=== PATIENT | male | born 1985 | race African-American/Black ===

== ENCOUNTER 2020-03-07 00:50 | Inpatient (IN) | payer SELFPAY ==
[~2020-03-07] VITALS: Ht 180.3 cm; Wt 81.8 kg
[2020-03-07] VITALS (7 sets, daily range): BP systolic 114–150; BP diastolic 71–94
[2020-03-07] MEDS: HYDROcodone/APAP 10/325 1 TAB TABLET PO PRN ×4 (01:38→20:27)
[2020-03-07] MEDS ORDERED: HYDROcodone/APAP 5/325MG 1 TAB TABLET PO PRN (12:00)
--- NOTE | 2020-03-07 12:01 | HP ---
ADMIT DATE: 03/07/2020 HISTORY OF PRESENT ILLNESS: The patient is a 34-year-old -[place] right-handed male with no reported past medical history who presented with chief complaint of pain and swelling in his right third finger. He stated he noticed pain approximately 6 hours prior to arrival. He states that he noticed progressive swelling and redness of his finger. He states that it is painful to move and is getting more swollen. He does not note an opening draining wounds on the dorsum of the proximal interphalangeal joint. Denied any trauma or injury. Denies any IV drug use. Denied any recent antibiotic. Denied any chills, rigors or fever. He thinks that the redness has been tracking to his hand and wrist. Has never had something like this before. 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 He was not wearing any gloves; however, he denied any known injury or trauma. He was evaluated in the Emergency Room. His lab work was unremarkable. He has had a CT scan of his upper extremity, which showed that the patient has fourth digit subcutaneous edema and mild dorsal hand subcutaneous edema. No abscess. There is a small cutaneous lesion overlying the 4th proximal phalanx, [id number] distal phalanx base fracture, patent vasculature, myotendinous structures are grossly intact. Given the pain and swelling, the patient was treated with IV cefazolin and oral Bactrim and was transferred to [facility] to consult the orthopedic surgeon as well as the Infectious Disease specialist. PAST MEDICAL HISTORY: Unremarkable. PAST SURGICAL HISTORY: Also unremarkable. FAMILY HISTORY: Noncontributory to present illness. 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 He smokes more than a pack a day. Does not drink alcohol or use recreational drugs. REVIEW OF SYSTEMS: As per history of present illness. PHYSICAL EXAMINATION: GENERAL: On examining him, he looked well and was clearly in no apparent respiratory distress. No pallor, jaundice, cyanosis or thyromegaly. No jugular venous distention. No limb edema. VITAL SIGNS: His heart rate was 85, blood pressure was 132/65, temperature was 97.9, respiratory rate was 16, and oxygen saturation was 98% on room air. HEAD, EYES, EARS, NOSE AND THROAT: Normocephalic, atraumatic. NECK: Supple. HEART: Showed normal first and second heart sounds. No gallop, rub or murmur. CHEST: Clear to auscultation. No crepitation or rhonchi. ABDOMEN: Distended, soft, nontender. NEUROLOGIC: He is awake, alert, responding appropriately. All cranial nerves intact. EXTREMITIES: He moves extremities without difficulty. Examination of the right hand showed that his right third digit with fusiform swelling noted 2 mm opening draining wound noted on the dorsal aspect of the proximal interphalangeal joint, overlying erythema appreciated pain with passive extension. The erythema appears to be streaking to the dorsum of the hand overlying the right wrist slightly. LABORATORY DATA: Showed a white cell count of 8100, hemoglobin 13.3, hematocrit 38, MCV 79, and platelet count 227,000 with normal manual differential. Serum sodium 140, potassium 3.8, chloride 105, bicarbonate 26, anion gap of 9, BUN 17, creatinine 1.5, estimated GFR was 64 mL per minute, his glucose was 96 and calcium was 9.3. ASSESSMENT AND PLAN: This is a 34-year-old -[place] male patient who came in with complaint of pain, swelling and redness of the right third middle finger extending over his right hand. He denied any trauma or known injury. He has also [id number] distal phalanx base fracture and therefore the patient was transferred to [facility] to consult the orthopedic surgeon as well as the Infectious Disease. We will continue with IV cefazolin as well as Bactrim and decide on further management accordingly. SHEELA MONTESINOS MD DR: DAXA/dave JOB#: [id number] / [id number]
[2020-03-07] MEDS: ceFAZolin SODIUM IV Push 1 GM VIAL. IVP SCH ×2 (12:55→22:55)
[2020-03-07] MEDS: SMZ/TMP 800/160MG TABLET. PO SCH ×2 (12:55→20:27)
[2020-03-07] MEDS ORDERED: CEFAZOLIN SODIUM IV SCH (13:00)
[2020-03-07] MEDS ORDERED: DEXTROSE 5% IV SCH (13:00)
--- NOTE | 2020-03-07 13:36 | PDOC2 ---
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 He stated he noticed pain approximately 6 hours prior to arrival to the ER yeste rday, got somewhat better on IV antibiotics, and now hasn't had a dose of antibiotics for awhile and swelling is worse. He states that he noticed progressive swelling and redness of his finger. He states that it is painful to move and is getting more swollen. Difficult to tell if there is more pain dorsally or on the flexor side, but seems mostly on the dorsal aspect of the ring finger. He does not note an opening draining wounds on the dorsum of the proximal interphalangeal joint. Denied any trauma or injury. Denies any IV drug use. Denied any recent antibiotic. Denied any chills, rigors or fever. He thinks that the redness has been tracking to his hand and wrist. Has never had something like this before. 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 He was not wearing any gloves; however, he denied any known injury or trauma. He was evaluated in the Emergency Room. His lab work was unremarkable. He has had a CT scan of his upper extremity, which showed that the patient has fourth digit subcutaneous edema and mild dorsal hand subcutaneous edema. No abscess. There is a small cutaneous lesion overlying the 4th proximal phalanx, [id number] distal phalanx base fracture, patent vasculature, myotendinous structures are grossly intact. Given the pain and swelling, the patient was treated with IV cefazolin and oral Bactrim and was transferred to [facility], and I was consulted. Current Medications Current Medications Current Medications Acetaminophen/ Hydrocodone Bitart (Lortab 10/325) 1 tab PRN Q6HRS PRN PO SEVERE PAIN 7-10 Last administered on 03/07/20at 07:45; Start 03/07/20 at 01:30 Cefazolin Sodium 500 mg/Dextrose 50 ml @ 100 mls/hr Q8HRS IV ; Start 03/07/20 at 13:00; Status Cancel Trimethoprim/ Sulfamethoxazole (Bactrim Ds) 1 tab BID PO Last administered on 03/07/20at 12:55; Start 03/07/20 at 12:00 Acetaminophen/ Hydrocodone Bitart (Lortab 5/325) 1 tab PRN Q4HRS PRN PO MODERATE TO SEVERE PAIN; Start 03/07/20 at 12:00 Cefazolin Sodium (Ancef) 1 gm Q8HRS IVP Last administered on 03/07/20at 12:55; Start 03/07/20 at 13:00 Allergies Allergies: Coded Allergies: No Known Drug Allergies (Unverified , 07/31/15) Physical Exam General: Alert, Cooperative HEENT: Atraumatic Lungs: Normal air movement Heart: Regular rate Abdomen: Soft Extremities: Other (The entire hand is trace swollen, however most of the swelling pain and difficulty with motion are of the right ring finger. He is keeping the finger slightly flexed, and has increased dorsal pain with passive extension (not increased pain on the flexor tendon). He does not otherwise have the Kanavel signs--there is minimal if any tenderness on the flexor aspect, there is no flexor side pain with passive extension, there is no "sausage digit" fusiform swelling. The swelling and tenderness are localized dorsally along the proximal and middle phalanx. There is a tiny abrasion or healed laceration pinpoint <1mm size on the skin of the middle phalanx but no drainage. Doubtful erythema. No PIP joint effusion on exam using medial to lateral joint compr ession. Difficult to localize any specific area to drain. ) MUSCULOSKELETAL: Abnormal exam of right (ring finger as above) Vitals VITALS Vital Signs Date Time Temp Pulse Resp B/P (MAP) Pulse Ox O2 Delivery O2 Flow Rate FiO2 03/07/20 11:00 98.2 71 18 131/79 (96) 99 98.2 03/07/20 10:00 Room Air Images Images Report reviewed and images independently reviewed of CT scan right upper extremity. Slight dorsal finger ring finger swelling series 6 image 74, with no apparent abscess nor any joint effusion. Dorsal swelling also on series 4 image 56 and also on image 35 (these are over the MCP joint and PIP joint respectively). I don't have access to x-rays or XR report, although I believe he had plain radiographs previously. [address] [address] IMAGING REPORT Signed PATIENT: MERCEDES MOJICA ACCOUNT: [id number] : 1985 LOCATION: ER AGE: 34 SEX: M EXAM STATUS: REG ER ORD. PHYSICIAN: LAKISHA NEWBERRY DO REASON: Rt 4rd digit redness, swelilng extending to dorsum of hand PROCEDURE: CT UPPER EXTREMTY W/CONTRST RT CT UPPER EXTREMTY W/CONTRST RT History: Reason: Rt 4rd digit redness, swelilng extending to dorsum of hand / Spl. Instructions: / History: Comparison: None. Technique: CT right upper extremity with contrast. Coronal and sagittal reconstructions were performed. Exposure: One or more of the following individualized dose reduction techniques were utilized for this examination: 1. Automated exposure control 2. Adjustment of the mA and/or kV according to patient size 3. Use of iterative reconstruction technique. Findings: Fourth digit subcutaneous edema. Mild dorsal hand subcutaneous edema. No abscess. There is a small cutaneous lesion overlying the fourth proximal phalanx. Acute to subacute third distal phalanx base fracture. Patent vasculature. Myotendinous structures are grossly intact. Impression: 1. Fourth digit dorsal soft tissue swelling extending into the dorsal aspect of the. No evidence of abscess. If persistent clinical concern, MRI can better evaluate. 2. Small cutaneous lesion overlying the dorsal fourth proximal phalanx. Recommend clinical correlation. 3. Acute to subacute third distal phalanx base fracture. Electronically signed by: Too Dumont DO (03/06/2020 10:14 PM) [facility] DICTATED AND SIGNED BY: TOO DUMONT DO DATE: 03/06/20 [id number] CC: PCP,RUEL; LAKISHA NEWBERRY DO Assessment/Plan Assessment/Plan There is right finger swelling but without apparent drainable abscess or any definitive septic joint. There is no reported or definitive injury. I do not believe this is flexor tenosynovitis, although to he does have a few symptoms of it, such as holding the finger flexed and increased pain with passive extension, but on my examination almost all of the concerning findings are on the dorsal aspect. I recommend intravenous antibiotics at this time, and if there is infection it might coalesce, and be more obvious where an incision could be placed if there is any surgical drainage needed. At this time I am not recommending surgery and I will reexamine him after antibiotics have been continued. There is inflammation along the extensor tendon of the right ring finger. GENE MARTIN MD Mar 07, 2020 13:36
--- NOTE | 2020-03-07 15:16 | NUR ---
SW following. Spoke with RN and reviewed chart. Pt from home. Pt on room air, regular diet, PO medications. Consult to Dr. Rodriguez per cellulitis. Pt will likely discharge home today, self-care. No SW needs identified for discharge planning. Addendum: 03/07/20 at 1521 by IVÁN GARCIAS pt is self-pay and [facility] is following.
[2020-03-07] MEDS: LACTOBACILLUS RHAMNOSUS GG 1 CAPSULE. PO SCH (20:27)
[2020-03-08 03:20] VITALS: BP 132/77
[2020-03-08] MEDS: HYDROcodone/APAP 10/325 1 TAB TABLET PO PRN ×2 (03:23→09:29)
[2020-03-08] MEDS: ceFAZolin SODIUM IV Push 1 GM VIAL. IVP SCH (06:09)
[2020-03-08 06:19] LABS: HEMATOCRIT 40.7 % (39.0-53.0); HEMOGLOBIN 14.1 g/dL (13.0-17.5); RED BLOOD COUNT 5.25 x10^6/uL (4.30-5.70); RED CELL DISTRIBUTION WIDTH 14.4 % (11.5-14.5); WHITE BLOOD COUNT 9.1 x10^3/uL (4.0-11.0)
[2020-03-08 06:40] LABS: C-REACTIVE PROTEIN 23.2 mg/L (0-3.3); URIC ACID 4.9 mg/dL (3.5-7.2)
[2020-03-08 06:42] LABS: ALBUMIN 3.8 g/dL (3.4-5.0); ALBUMIN/GLOBULIN RATIO 1.3 (1.0-1.7); CALCIUM 9.1 mg/dL (8.5-10.1); CREATININE 1.3 mg/dL (0.7-1.3); GFR 76.5; POTASSIUM 4.3 mmol/L (3.5-5.1); TOTAL BILIRUBIN 0.2 mg/dL (0.2-1.0); TOTAL PROTEIN 6.7 g/dL (6.4-8.2)
[2020-03-08 07:00] VITALS: BP 137/88
[2020-03-08] MEDS: LACTOBACILLUS RHAMNOSUS GG 1 CAPSULE. PO SCH (09:29)
[2020-03-08] MEDS: SMZ/TMP 800/160MG TABLET. PO SCH (09:29)
[2020-03-08 11:00] VITALS: BP 136/76
[2020-03-08] MEDS ORDERED: DOXYCYCLINE HYCLATE 100 MG TABLET PO SCH (11:00)
[2020-03-08] MEDS ORDERED: cefTRIAXone IV Push 2 GM VIAL. IVP ONE (11:15)
--- NOTE | 2020-03-08 11:43 | CONS ---
DATE OF CONSULTATION: 03/08/2020 REQUESTING PHYSICIAN: Dr. Orellana. REASON FOR CONSULTATION: Right hand swelling and pain. HISTORY OF PRESENT ILLNESS: This is a 34-year-old gentleman who started having about 3 or 4 days ago sudden onset of swelling and pain into the right hand. The patient denies any trauma. Denies any break in the skin. The patient apparently was working and then started having pain and swelling. The patient denies any fever. Denies any chest pain, shortness of breath, abdominal pain, urinary symptoms or bowel symptoms. On further questioning for about any syphilis or gonorrhea, he said he did have syphilis 2 years ago, but he never got any shots. He got a couple of pills, so it sounds like he may have had gonorrhea rather than syphilis. Syphilis would be treated with shots. The patient denies any penile discharge right now. PAST MEDICAL HISTORY: Positive for metal clarisa in the right foot, otherwise unremarkable. Other than what I mentioned as he said that he remembers having syphilis 2 years ago. Again, treatment did not go with his diagnosis or his memory. SOCIAL HISTORY: The patient is sexually active with females, never had males. The patient does smoke. Occasional alcohol use. No drug use. ALLERGIES: No known drug allergies. CURRENT MEDICATIONS: Reviewed. REVIEW OF SYSTEMS: As per HPI, all other systems reviewed are negative. PHYSICAL EXAMINATION: GENERAL: Alert, oriented gentleman, not in distress. VITAL SIGNS: Stable, afebrile. HEENT: NAD. NECK: Supple, no JVP, no lymphadenopathy. LUNGS: Clear. HEART: S1, S2 regular. ABDOMEN: Soft, nontender, no organomegaly. EXTREMITIES: No edema, cyanosis. SKIN: Unremarkable except the right hand is swollen. The swelling is all the hand including the fingers and/or some more pronounced into the right ring finger. There is passive extension movement. It is in a flexed position is the finger and any extension causes pain, indicating does have tenosynovitis. The patient is also tender on the palm, the tendons. There is no pus pointing. There is no area of concern with abscess. There is no break in the skin other than a little pimple on the finger. Rest of skin examination is unremarkable. The patient is neurologically intact. LABORATORY DATA: White count is normal. BUN and creatinine is normal. CRP is 23.2. The patient did have a x-ray at [facility], which was unremarkable. IMPRESSION: Right hand swelling and pain. This is a combination of regular simple cellulitis versus tenosynovitis. With his history of syphilis or gonorrhea 2 years ago, it is worth consideration. RECOMMENDATIONS: We would change antibiotics to Rocephin. Get RPR or syphilis test done as well as urine for GC and chlamydia and with Rocephin 2 grams that would be more than adequate to treat gonorrhea and we will put him on doxycycline for him to go home on that would also work for his possible cellulitis. Thank you very much, Dr. Orellana, for giving me the opportunity to participate in this patient's care. DANAE WARD MD DR: THOMPSON/dave JOB#: [id number] / [id number]
[2020-03-08 15:00] VITALS: BP 137/87
[2020-03-08] MEDS ORDERED: DOXY100C2 PO (15:23)
--- NOTE | 2020-03-08 16:43 | NUR ---
SW following. Spoke with RN and reviewed chart. Spoke with Dr. Rowe and pt will discharge on oral abx. No SW needs identified for discharge planning.
--- NOTE | 2020-03-08 17:30 | NUR ---
Discharge Note: Patient was discharge home with self care. Patients IV was discontinued without any complications per [employer]. Patient was given discharge summary/instructions, follow-ups, prescriptions and educational material. Patient did not have any further questions or concerns. Patient ambulated to the main entrance with all personal belongings accompanied by [facility] Shawna, where his ride was here to take him home.
--- NOTE | 2020-03-09 10:01 | DS ---
DATE OF DISCHARGE: 03/08/2020 HOSPITAL COURSE: The patient is a 34-year-old -[place] male patient who was admitted with cellulitis of the right hand. He presented to the Emergency Room of [facility] with pain, swelling and redness of the right third middle finger extending over to his right hand. He denied any trauma or known injury. He also had acute or subacute distal phalanx base fracture and therefore, he was transferred to [facility] to consult the orthopedic surgeon as well as Infectious Disease. He was treated with cefazolin as well as Bactrim. He was seen by the orthopedic surgeon, Dr. Rodriguez who basically did not think that the patient has any septic joint and he does not believe that he has flexor tenosynovitis. He was seen by Dr. Rowe. He was basically given 2 grams of Rocephin and urine was sent for gonorrhea and chlamydia and also RPR for syphilis and was discharged home to go on doxycycline 100 mg twice a day for 10 days. PHYSICAL EXAMINATION: GENERAL: When I saw him yesterday before discharge, he looked well and was clearly in no apparent respiratory distress. No pallor, jaundice, cyanosis or thyromegaly. No jugular venous distention or limb edema. VITAL SIGNS: His heart rate was 68, blood pressure was 137/87, temperature 98.8, respiratory rate was 20, and oxygen saturation was 100%. HEAD, EYES, EARS, NOSE AND THROAT: Showed normocephalic, atraumatic. NECK: Supple. HEART: Showed normal first and second heart sounds. No gallop or murmur. CHEST: Clear to auscultation. No crepitation or rhonchi. ABDOMEN: Distended, soft, nontender. NEUROLOGIC: He was grossly intact. His right hand continued to be swollen and tender to touch. LABORATORY DATA: His Treponema pallidum is nonreactive. His white cell count was 9100, hemoglobin 14, hematocrit 40, MCV 78 and platelet count 239,000. Serum sodium was 137, potassium 4.3, chloride 101, bicarbonate 28, anion gap of 8, BUN 14, creatinine 1.3, estimated GFR was 76 mL per minute, his glucose is 116. Uric acid 4.9. His calcium was 9.1. Total bilirubin, AST, ALT, alkaline phosphatase were normal. C-reactive protein was 23.2. Total protein was 6.7, albumin 3.8. DISCHARGE MEDICATIONS: The patient was discharged home to continue on doxycycline 100 mg twice a day for 10 days. He was given also prescription for pain medication. His gonorrhea and chlamydia test is still pending at the time of this dictation. SHEELA MONTESINOS MD DR: DAXA/dave JOB#: [id number] / [id number]
== END 2020-03-08 17:58 | disposition home or self-care (01) | DRG 603 ==
LOC: 5 NORTH 00:50
PROVIDERS: ADMIT Internal Medicine; ATTEND Internal Medicine
DX: L03.113 Cellulitis of right upper limb (principal); F17.210 Nicotine dependence, cigarettes, uncomplicated
CPT/HCPCS: 36415; 80053; 84550; 85027; 86140; 86592; 87491; 87591; J0690; J0696; G0378

== ENCOUNTER 2020-11-30 00:27 | Inpatient (IN) | payer SELFPAY ==
[~2020-11-30] VITALS: Ht 188 cm; Wt 95.5 kg
[~2020-11-30 00:27] MED LIST: DOXY100C2 PO
[2020-11-30] MEDS ORDERED: HALOPERIDOL LACTATE 5 MG/ML VIAL. IVP ONE (01:15)
[2020-11-30] MEDS ORDERED: IV NORMAL SALINE 1000ML BAG 1,000 ML IV ONE ×2 (01:15→07:00)
[2020-11-30] MEDS ORDERED: KETAMINE HCL 500 MG/10 ML VIAL. IV ONE (01:15)
[2020-11-30 01:16] LABS: BASO % 1 % (0-3); EOS % 1 % (0-3); HEMATOCRIT 39.3 % (39.0-53.0); HEMOGLOBIN 13.7 g/dL (13.0-17.5); LYMPH # 2.3 x10^3/uL (1.0-4.8); LYMPH % 43 % (24-48); MEAN CORPUSCULAR HEMOGLOBIN 27 pg (25-35); MEAN CORPUSCULAR HGB CONC 35 g/dL (31-37); MEAN CORPUSCULAR VOLUME 78 fL (79-100); MONO # 0.5 x10^3/uL (0.0-1.1); MONO % 9 % (0-9); NEUT # 2.5 x10^3/uL (1.8-7.7); NEUT % 47 % (31-73); PLATELET COUNT 228 x10^3/uL (140-400); RED BLOOD COUNT 5.06 x10^6/uL (4.30-5.70); RED CELL DISTRIBUTION WIDTH 14.2 % (11.5-14.5); WHITE BLOOD COUNT 5.3 x10^3/uL (4.0-11.0)
--- NOTE | 2020-11-30 01:25 | PHYS DOC ---
Past Medical History Past Medical History: No Pertinent History (MARYAM HERMAN DO) Past Surgical History: No Surgical History (MARYAM HERMAN DO) Smoking Status: Current Every Day Smoker Alcohol Use: None Drug Use: None (MARYAM HERMAN DO) General Adult HPI: HPI: 35-year-old male who denies any past medical history presents to the ED bibems/in police custody, confused, minimally responsive to pain. Per police at bedside they were called to the scene because patient was making homicidal threats to shoot people with a gun. Patient was found in an apartment complex parking lot with multiple cans of beer in his vehicle. Patient later reported an EEG that he "doesn't see doctors," and "I did alot of durgs." Pt c/o front tooth being knocked out. Police also reports that patient resisted arrest and patient's head was slammed on the top of his vehicle (MARYAM HERMAN DO) Review of Systems: Review of Systems: ROS: Unobtainable due to patient's agitation/suspect polysubstance abuse, patient with no medical decision-making capacity (MARYAM HERMAN DO) Heart Score: C/O Chest Pain: N/A Risk Factors: Risk Factors: DM, Current or recent (<one month) smoker, HTN, HLP, family history of CAD, obesity. Risk Scores: Score 0 - 3: 2.5% MACE over next 6 weeks - Discharge Home Score 4 - 6: 20.3% MACE over next 6 weeks - Admit for Clinical Observation Score 7 - 10: 72.7% MACE over next 6 weeks - Early Invasive Strategies (MARYAM HERMAN DO) C/O Chest Pain: No (NORMA TINEO MD) Current Medications: Current Medications Medications (Trade) Dose Ordered Sig/Destini Start Time Stop Time Status Last Admin Dose Admin Haloperidol Lactate (Haldol Inj) 5 mg 1X ONCE 11/30/20 01:15 11/30/20 01:16 Ketamine HCl (Ketamine) 150 mg 1X ONCE 11/30/20 01:15 11/30/20 01:16 Sodium Chloride 1,000 ml @ 1,000 mls/hr 1X ONCE 11/30/20 01:15 11/30/20 02:14 (MARYAM HERMAN DO) Allergies: Allergies: Allergies Coded Allergies Type Severity Reaction Last Updated Verified No Known Drug Allergies 07/31/15 No (MARYAM HERMAN DO) Physical Exam: PE: Constitutional: Handcuffed with sand all over patient's head and neck and chest, states name HENT: Normocephalic, atraumatic, no periorbital ecchymosis, no septal hematoma, Eyes: PERRLA, EOMI, conjunctiva normal, no discharge. Neck: Normal range of motion, supple, no midline step-offs Cardiovascular: S1/2 present, regular rhythm Lungs & Thorax: Speaking in full sentences, bilateral equal chest rise, no tachypnea or increased work of breathing, bilateral breath sounds on arrival Abdomen: soft, no tenderness, Skin: Warm, dry, Back: No midline step-offs or reproducible tenderness, Extremities: No tenderness, no cyanosis, slight abrasion-unsure if new/old over medial left knee Neurologic: E1M1V5 = GCS7, alert to name, Psychologic: very agitated, uncooperative, disorganized behavior/inappropriate responses c/w substance abuse (MARYAM HERMAN DO) EKG: EKG: Since the mid 94 bpm, no axis deviation, QTC 448, no T wave inversions, no ST elevations or ST depressions (MARYAM HERMAN DO) Radiology/Procedures: Radiology/Procedures: IMAGING REPORT Signed PATIENT: MERCEDES MCKEONACCOUNT: [id number] : 1985 LOCATION: ER AGE: 35 SEX: M EXAM STATUS: REG ER ORD. PHYSICIAN: MARYAM HERMAN DO REASON: ams PROCEDURE: CT HEAD AND CERVICAL SPINE WO CT HEAD AND C-SPINE WO, CT MAXILLOFACIAL WITHOUT CONTRAST History: Reason: ams / Spl. Instructions: / History: Comparison: August 30, 2015 Technique: Noncontrast CT imaging was performed of the head, maxillofacial and cervical spine. Coronal and sagittal reconstructions were performed. Exposure: One or more of the following individualized dose reduction techniques were utilized for this examination: 1. Automated exposure control 2. Adjustment of the mA and/or kV according to patient size 3. Use of iterative reconstruction technique. Findings: Head CT: No intracranial hemorrhage. No mass effect. No hydrocephalus. Extra- axial spaces are unremarkable. Maxillofacial CT: No acute maxillofacial fracture. Orbits are unremarkable. Mild right maxillary sinus mucosal thickening. Mastoid air cells are clear. No acute calvarial fracture. Cervical spine CT: Normal vertebral body height. Normal alignment. No fracture. Small apical blebs. Impression: Head CT: 1. No acute intracranial abnormality. Maxillofacial CT: 1. No acute maxillofacial fracture. Cervical spine CT: 1. No acute fracture or subluxation of the cervical spine. Electronically signed by: Too Dumont DO (11/30/2020 2:07 AM) ERWINShopearMISSY DICTATED and SIGNED BY: TOO DUMONT DO DATE: 11/30/20 [id number] IMAGING REPORT Signed PATIENT: MERCEDES MCKEONACCOUNT: [id number] : 1985 LOCATION: ER AGE: 35 SEX: M EXAM STATUS: REG ER ORD. PHYSICIAN: MARYAM HERMAN DO REASON: ams PROCEDURE: PELVIS XR PELVIS 1-2V History: Reason: ams / Spl. Instructions: / History: Technique: AP view the pelvis. Comparison: None. Findings: Normal alignment. No fracture. Impression: 1. No acute osseous abnormality. Electronically signed by: Too Dumont DO (11/30/2020 1:47 AM) ERWINWowboardBONNY DICTATED and SIGNED BY: TOO DUMONT DO DATE: 11/30/20 [id number] IMAGING REPORT Signed PATIENT: MERCEDES MCKEONACCOUNT: [id number] : 1985 LOCATION: ER AGE: 35 SEX: M EXAM STATUS: REG ER ORD. PHYSICIAN: MARYAM HERMAN DO REASON: ams PROCEDURE: PORTABLE CHEST 1V XR CHEST 1V History: Reason: ams / Spl. Instructions: / History: Comparison: October 30, 2015 Findings: No consolidation or pleural effusion. Normal heart size. No pneumothorax. Impression: 1. No acute cardiopulmonary process. Electronically signed by: Too Dumont DO (11/30/2020 1:47 AM) ERWINShopearMISSY DICTATED and SIGNED BY: TOO DUMONT DO DATE: 11/30/20 [id number] (MARYAM HERMAN DO) Course & Med Decision Making: Course & Med Decision Making Pertinent Labs and Imaging studies reviewed. (See chart for details) Concern for polysubstance abuse/acute encephalopathy that required sedation with Haldol, ketamine and Ativan. Drug screen positive for alcohol, meth/vitamins and cocaine. Also with rhabdomyolysis and acute kidney injury treated with IV fluids. Will admit for further medical management with psych consult placed. Patient did not voice any suicidal or homicidal ideations to myself or staff. Initial plan was to admit to the hospital although I was not aware psychiatry was not neon tube bender and per hospital policy after d/w Dr. Varghese, pt must remain in ed and once sober with medical decision making capacity, requires pat consult. Pt signed out to oncoming physician for further evaluation and disposition. (MARYAM HERMAN DO) Course & Med Decision Making Accepted patient care at shift change. Patient is sleeping in bed in no acute distress. Per review of patient's labs he is in rhabdomyolysis, likely secondary to his agitated delirium. IV fluids ordered and admitted to Dr. Jacobs. Patient woke up and spoke with PAT member Melia, states he drinks heavily and is on regular events from last night. Is he has a previous psych history does not take any medications. Denies any suicidal homicidal intent at this time. PAT will continue to follow after medically cleared (NORMA TINEO MD) Dragon Disclaimer: Dragon Disclaimer: This electronic medical record was generated, in whole or in part, using a voice recognition dictation system. (MARYAM HERMAN DO) Departure Departure Impression: Primary Impression: Encephalopathy acute Additional Impressions: Agitation requiring sedation protocol Polysubstance abuse Blunt head trauma Rhabdomyolysis ADELINA (acute kidney injury) Need for Tdap vaccination Disposition: ADMITTED INPATIENT Admitting Physician: ANJALI (Dr. Varghese) (MARYAM HERMAN DO) Admitting Physician: ANJALI (NORMA TINEO MD) Condition: GUARDED Referrals: NO PCP (PCP) MARYAM HERMAN DO Nov 30, 2020 01:25 NORMA TINEO MD Nov 30, 2020 07:17
--- NOTE | 2020-11-30 01:34 | EKG ---
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
[2020-11-30 01:42] LABS: ACETAMIN < 2 mcg/ml (10-30); SALIC 4.3 mg/dL (2.8-20.0)
[2020-11-30 01:49] LABS: BILIRUBIN,URINE NEGATIVE (NEG); CLARITY,URINE CLEAR; COLOR,URINE YELLOW
--- NOTE | 2020-11-30 01:49 | RAD ---
XR PELVIS 1-2V History: Reason: ams / Spl. Instructions: / History: Technique: AP view the pelvis. Comparison: None. Findings: Normal alignment. No fracture. Impression: 1. No acute osseous abnormality. Electronically signed by: Too Dumont DO (11/30/2020 1:47 AM) [facility]
[2020-11-30 01:50] LABS: BACTERIA,URINE 0 /HPF (0-FEW); NITRITE,URINE NEGATIVE (NEG); PH,URINE 5.5 (<5.0-8.0); PROTEIN,URINE NEGATIVE (NEG-TRACE); RBC,URINE OCC /HPF (0-2); UROBILINOGEN,URINE 0.2 mg/dL (0.2 mg/dL); WBC,URINE 0 /HPF (0-4)
--- NOTE | 2020-11-30 01:50 | RAD ---
XR CHEST 1V History: Reason: ams / Spl. Instructions: / History: Comparison: October 30, 2015 Findings: No consolidation or pleural effusion. Normal heart size. No pneumothorax. Impression: 1. No acute cardiopulmonary process. Electronically signed by: Too Dumont DO (11/30/2020 1:47 AM) [facility]
[2020-11-30 01:51] LABS: HYALINE CASTS, URINE FEW /HPF
[2020-11-30 01:53] LABS: AMPHETAMINE/METHAMPHETAMINE POS (NEG); BARBITURATES NEG (NEG); BENZODIAZEPINES NEG (NEG); CANNABINOIDS NEG (NEG); COCAINE POS (NEG); METHADONE NEG (NEG); OPIATES NEG (NEG); PHENCYCLIDINE NEG (NEG)
[2020-11-30 01:56] LABS: ALBUMIN 4.1 g/dL (3.4-5.0); CALCIUM 8.7 mg/dL (8.5-10.1); CREATININE 1.5 mg/dL (0.7-1.3); DIRECT BILIRUBIN 0.1 mg/dL (0.0-0.2); GFR 64.4; MAGNESIUM 2.4 mg/dL (1.8-2.4); POTASSIUM 3.5 mmol/L (3.5-5.1); TOTAL BILIRUBIN 0.5 mg/dL (0.2-1.0); TOTAL PROTEIN 6.9 g/dL (6.4-8.2)
--- NOTE | 2020-11-30 02:10 | RAD ---
CT HEAD AND C-SPINE WO, CT MAXILLOFACIAL WITHOUT CONTRAST History: Reason: ams / Spl. Instructions: / History: Comparison: August 30, 2015 Technique: Noncontrast CT imaging was performed of the head, maxillofacial and cervical spine. Richardson l and sagittal reconstructions were performed. Exposure: One or more of the following individualized dose reduction techniques were utilized for thi s examination: 1. Automated exposure control 2. Adjustment of the mA and/or kV according to patient size 3. Use of iterative reconstruction technique. Findings: Head CT: No intracranial hemorrhage. No mass effect. No hydrocephalus. Extra-axial spaces are unrema rkable. Maxillofacial CT: No acute maxillofacial fracture. Orbits are unremarkable. Mild right maxillary sinus mucosal thickening. Mastoid air cells are clear. No acute calvarial fracture. Cervical spine CT: Normal vertebral body height. Normal alignment. No fracture. Small apical blebs. Impression: Head CT: 1. No acute intracranial abnormality. Maxillofacial CT: 1. No acute maxillofacial fracture. Cervical spine CT: 1. No acute fracture or subluxation of the cervical spine. Electronically signed by: Too Dumont DO (11/30/2020 2:07 AM) [facility]
[2020-11-30] MEDS ORDERED: DIPH,PERTUSS(ACELL),TET VAC/PF 0.5 ML SYRINGE. VAX IM ONE (03:45)
[2020-11-30 07:15] LABS: ISTAT BE VENOUS 2 mmol/L (0-3); ISTAT HCO3 VEN 29 mmol/L (24-28); ISTAT PCO2 VEN 61 mmHg (41-51); ISTAT PH VEN 7.28 (7.32-7.42); ISTAT PO2 VEN 35 mmHg (20-40); ISTAT SAT O2 VEN 58 %; ISTAT TCO2 VEN 30 mmol/L (21-32)
[2020-11-30] MEDS ORDERED: ACETAMINOPHEN 325 MG TABLET. PO PRN (07:15)
[2020-11-30] MEDS ORDERED: ONDANSETRON PF 4 MG/2 ML VIAL. IV PRN (07:15)
[2020-11-30] MEDS: MULTIVIT INFUSN,ADULT 4,VIT K 10 ML, THIAMINE INJ 100 MG, FOLIC ACID INJ 1 MG in IV NOR... IV SCH (09:32)
--- NOTE | 2020-11-30 10:21 | PDOC1 ---
History and Physical Date of Admission Date of Admission DATE: 11/30/20 TIME: 10:18 History of Present Illness History of Present Illness Mr. Mojica is a 35-year-old AA male admit for ER for acute psychosis, was in police custody, confused, minimally responsive to pain on arrival. then awoke and was agitated and combative and required sedation. . Per police at bedside they were called to the scene because patient was making homicidal threats to shoot people with a gun. he wass found with alcohol, and reports he doesnt like doctors, pt had a head injury during the arrest and he resisted and hit his head Past Medical History Cardiovascular: No pertinent hx Psych: Addictions, Other (maybe bipolar) Family History Family History: No Significant Family History: Other Social History ALCOHOL: heavy Drugs: Marijuana, Crystal meth Current Problem List Problem List Problems Medical Problems: (1) Agitation requiring sedation protocol Status: Acute (2) ADELINA (acute kidney injury) Status: Acute (3) Blunt head trauma Status: Acute (4) Encephalopathy acute Status: Acute (5) Need for Tdap vaccination Status: Acute (6) Polysubstance abuse Status: Acute (7) Rhabdomyolysis Status: Acute Current Medications Current Medications Current Medications Haloperidol Lactate (Haldol Inj) 5 mg 1X ONCE IVP Last administered on 11/30/20at 00:47; Start 11/30/20 at 01:15; Stop 11/30/20 at 01:16; Status DC Ketamine HCl (Ketamine) 150 mg 1X ONCE IV Last administered on 11/30/20at 01:00; Start 11/30/20 at 01:15; Stop 11/30/20 at 01:16; Status DC Sodium Chloride 1,000 ml @ 1,000 mls/hr 1X ONCE IV Last administered on 11/30/20at 01:00; Start 11/30/20 at 01:15; Stop 11/30/20 at 02:14; Status DC Lorazepam (Ativan Inj) 2 mg 1X ONCE IVP Last administered on 11/30/20at 01:25; Start 11/30/20 at 01:30; Stop 11/30/20 at 01:31; Status DC Diphtheria/ Tetanus/Acell Pertussis (ADACEL TDap SYRINGE) 0.5 ml ONCE ONCE VAX IM Last administered on 11/30/20at 03:56; Start 11/30/20 at 03:45; Stop 11/30/20 at 03:46; Status DC Sodium Chloride 1,000 ml @ 1,000 mls/hr 1X ONCE IV Last administered on 11/30/20at 08:01; Start 11/30/20 at 07:00; Stop 11/30/20 at 07:59; Status DC Sodium Chloride 1,000 ml @ 250 mls/hr Q4H IV ; Start 11/30/20 at 08:00 Ondansetron HCl (Zofran) 4 mg PRN Q8HRS PRN IV NAUSEA/VOMITING; Start 11/30/20 at 07:15; Stop 12/01/20 at 07:14 Acetaminophen (Tylenol) 650 mg PRN Q4HRS PRN PO FEVER > 100.3'F; Start 11/30/20 at 07:15; Stop 12/01/20 at 07:14 Multivitamins 10 ml/Thiamine HCl 100 mg/Folic Acid 1 mg/Sodium Chloride 1,011.2 ml @ 100 mls/ hr DAILY IV Last administered on 11/30/20at 09:32; Start 11/30/20 at 09:00; Stop 12/04/20 at 19:07 Multivitamins (Thera M Plus) 1 tab DAILY PO ; Start 12/05/20 at 09:00 Folic Acid (Folic Acid) 1 mg DAILY PO ; Start 12/05/20 at 09:00 Thiamine Mononitrate (Vitamin B-1) 100 mg DAILY PO ; Start 12/05/20 at 09:00 Lorazepam (Ativan Inj) 2 mg PRN Q1HR PRN IV For CIWA 8-14; Start 11/30/20 at 08:15 Lorazepam (Ativan Inj) 4 mg PRN Q1HR PRN IV For CIWA 15 or greater; Start 11/30/20 at 08:15 Active Scripts Active Reported Doxycycline Hyclate 100 Mg Capsule 1 Cap PO BID 10 Days Allergies Allergies: Coded Allergies: No Known Drug Allergies (Unverified , 07/31/15) ROS Review of System psychotic and agitated, then obtunded from meds, Physical Exam General: moderate distress, Other (agitatd and animated, then asleep, not coherent ) HEENT: Atraumatic, EOMI Lungs: Clear to auscultation Heart: S1S2, no murmurs, other (reg on tele) Abdomen: Soft Extremities: No clubbing, No cyanosis Skin: No rashes Neuro: Normal speech Psych/Mental Status: Other (agitated, ) Vitals Vitals Vital Signs Date Time Temp Pulse Resp B/P (MAP) Pulse Ox O2 Delivery O2 Flow Rate FiO2 11/30/20 08:28 82 18 121/77 (92) 99 Nasal Cannula 2.0 11/30/20 00:27 97.8 97.8 Labs Labs Laboratory Tests Test 11/30/20 00:40 11/30/20 01:00 11/30/20 04:25 Urine Collection Type Unknown Urine Color Yellow Urine Clarity Clear Urine pH 5.5 (<5.0-8.0) Urine Specific Woden >=1.030 (1.000-1.030) Urine Protein Negative mg/dL (NEG-TRACE) Urine Glucose (UA) Negative mg/dL (NEG) Urine Ketones (Stick) Trace mg/dL (NEG) Urine Blood Trace (NEG) Urine Nitrite Negative (NEG) Urine Bilirubin Negative (NEG) Urine Urobilinogen Dipstick 0.2 mg/dL (0.2 mg/dL) Urine Leukocyte Esterase Negative (NEG) Urine RBC Occ /HPF (0-2) Urine WBC 0 /HPF (0-4) Urine Squamous Epithelial Cells Few /LPF Urine Bacteria 0 /HPF (0-FEW) Urine Hyaline Casts Few /HPF Urine Mucus Marked /LPF Urine Opiates Screen Neg (NEG) Urine Methadone Screen Neg (NEG) Urine Barbiturates Neg (NEG) Urine Phencyclidine Screen Neg (NEG) Urine Amphetamine/Methamphetamine Pos (NEG) Urine Benzodiazepines Screen Neg (NEG) Urine Cocaine Screen Pos (NEG) Urine Cannabinoids Screen Neg (NEG) Urine Ethyl Alcohol Pos (NEG) White Blood Count 5.3 x10^3/uL (4.0-11.0) Red Blood Count 5.06 x10^6/uL (4.30-5.70) Hemoglobin 13.7 g/dL (13.0-17.5) Hematocrit 39.3 % (39.0-53.0) Mean Corpuscular Volume 78 fL (79-100) Mean Corpuscular Hemoglobin 27 pg (25-35) Mean Corpuscular Hemoglobin Concent 35 g/dL (31-37) Red Cell Distribution Width 14.2 % (11.5-14.5) Platelet Count 228 x10^3/uL (140-400) Neutrophils (%) (Auto) 47 % (31-73) Lymphocytes (%) (Auto) 43 % (24-48) Monocytes (%) (Auto) 9 % (0-9) Eosinophils (%) (Auto) 1 % (0-3) Basophils (%) (Auto) 1 % (0-3) Neutrophils # (Auto) 2.5 x10^3/uL (1.8-7.7) Lymphocytes # (Auto) 2.3 x10^3/uL (1.0-4.8) Monocytes # (Auto) 0.5 x10^3/uL (0.0-1.1) Eosinophils # (Auto) 0.0 x10^3/uL (0.0-0.7) Basophils # (Auto) 0.0 x10^3/uL (0.0-0.2) Sodium Level 144 mmol/L (136-145) Potassium Level 3.5 mmol/L (3.5-5.1) Chloride Level 107 mmol/L (98-107) Carbon Dioxide Level 24 mmol/L (21-32) Anion Gap 13 (6-14) Blood Urea Nitrogen 13 mg/dL (8-26) Creatinine 1.5 mg/dL (0.7-1.3) Estimated GFR (Cockcroft-Gault) 64.4 Glucose Level 118 mg/dL (70-99) Calcium Level 8.7 mg/dL (8.5-10.1) Magnesium Level 2.4 mg/dL (1.8-2.4) Total Bilirubin 0.5 mg/dL (0.2-1.0) Direct Bilirubin 0.1 mg/dL (0.0-0.2) Aspartate Amino Transf (AST/SGOT) 63 U/L (15-37) Alanine Aminotransferase (ALT/SGPT) 47 U/L (16-63) Alkaline Phosphatase 68 U/L (46-116) Creatine Kinase 3526 U/L (39-308) Troponin I Quantitative < 0.017 ng/mL (0.000-0.055) VL-Zwc-F-Type Natriuretic Peptide 23 pg/mL (0-124) Total Protein 6.9 g/dL (6.4-8.2) Albumin 4.1 g/dL (3.4-5.0) Salicylates Level 4.3 mg/dL (2.8-20.0) Salicylate Last Dose Date Salicylate Last Dose Time Acetaminophen Level < 2 mcg/ml (10-30) Acetaminophen Last Dose Date Acetaminophen Last Dose Time Ethyl Alcohol Level 168 mg/dL (0-10) Bedside Venous pH 7.28 (7.32-7.42) Bedside Venous pCO2 61 mmHg (41-51) Bedside Venous pO2 35 mmHg (20-40) Venous Blood HCO3 29 mmol/L (24-28) POC Venous O2 Saturation (Beatrice) 58 % Bedside FiO2 Laboratory Tests Test 11/30/20 00:40 11/30/20 01:00 11/30/20 04:25 Urine Collection Type Unknown Urine Color Yellow Urine Clarity Clear Urine pH 5.5 (<5.0-8.0) Urine Specific Woden >=1.030 (1.000-1.030) Urine Protein Negative mg/dL (NEG-TRACE) Urine Glucose (UA) Negative mg/dL (NEG) Urine Ketones (Stick) Trace mg/dL (NEG) Urine Blood Trace (NEG) Urine Nitrite Negative (NEG) Urine Bilirubin Negative (NEG) Urine Urobilinogen Dipstick 0.2 mg/dL (0.2 mg/dL) Urine Leukocyte Esterase Negative (NEG) Urine RBC Occ /HPF (0-2) Urine WBC 0 /HPF (0-4) Urine Squamous Epithelial Cells Few /LPF Urine Bacteria 0 /HPF (0-FEW) Urine Hyaline Casts Few /HPF Urine Mucus Marked /LPF Urine Opiates Screen Neg (NEG) Urine Methadone Screen Neg (NEG) Urine Barbiturates Neg (NEG) Urine Phencyclidine Screen Neg (NEG) Urine Amphetamine/Methamphetamine Pos (NEG) Urine Benzodiazepines Screen Neg (NEG) Urine Cocaine Screen Pos (NEG) Urine Cannabinoids Screen Neg (NEG) Urine Ethyl Alcohol Pos (NEG) White Blood Count 5.3 x10^3/uL (4.0-11.0) Red Blood Count 5.06 x10^6/uL (4.30-5.70) Hemoglobin 13.7 g/dL (13.0-17.5) Hematocrit 39.3 % (39.0-53.0) Mean Corpuscular Volume 78 fL (79-100) Mean Corpuscular Hemoglobin 27 pg (25-35) Mean Corpuscular Hemoglobin Concent 35 g/dL (31-37) Red Cell Distribution Width 14.2 % (11.5-14.5) Platelet Count 228 x10^3/uL (140-400) Neutrophils (%) (Auto) 47 % (31-73) Lymphocytes (%) (Auto) 43 % (24-48) Monocytes (%) (Auto) 9 % (0-9) Eosinophils (%) (Auto) 1 % (0-3) Basophils (%) (Auto) 1 % (0-3) Neutrophils # (Auto) 2.5 x10^3/uL (1.8-7.7) Lymphocytes # (Auto) 2.3 x10^3/uL (1.0-4.8) Monocytes # (Auto) 0.5 x10^3/uL (0.0-1.1) Eosinophils # (Auto) 0.0 x10^3/uL (0.0-0.7) Basophils # (Auto) 0.0 x10^3/uL (0.0-0.2) Sodium Level 144 mmol/L (136-145) Potassium Level 3.5 mmol/L (3.5-5.1) Chloride Level 107 mmol/L (98-107) Carbon Dioxide Level 24 mmol/L (21-32) Anion Gap 13 (6-14) Blood Urea Nitrogen 13 mg/dL (8-26) Creatinine 1.5 mg/dL (0.7-1.3) Estimated GFR (Cockcroft-Gault) 64.4 Glucose Level 118 mg/dL (70-99) Calcium Level 8.7 mg/dL (8.5-10.1) Magnesium Level 2.4 mg/dL (1.8-2.4) Total Bilirubin 0.5 mg/dL (0.2-1.0) Direct Bilirubin 0.1 mg/dL (0.0-0.2) Aspartate Amino Transf (AST/SGOT) 63 U/L (15-37) Alanine Aminotransferase (ALT/SGPT) 47 U/L (16-63) Alkaline Phosphatase 68 U/L (46-116) Creatine Kinase 3526 U/L (39-308) Troponin I Quantitative < 0.017 ng/mL (0.000-0.055) GU-Xya-I-Type Natriuretic Peptide 23 pg/mL (0-124) Total Protein 6.9 g/dL (6.4-8.2) Albumin 4.1 g/dL (3.4-5.0) Salicylates Level 4.3 mg/dL (2.8-20.0) Salicylate Last Dose Date Salicylate Last Dose Time Acetaminophen Level < 2 mcg/ml (10-30) Acetaminophen Last Dose Date Acetaminophen Last Dose Time Ethyl Alcohol Level 168 mg/dL (0-10) Bedside Venous pH 7.28 (7.32-7.42) Bedside Venous pCO2 61 mmHg (41-51) Bedside Venous pO2 35 mmHg (20-40) Venous Blood HCO3 29 mmol/L (24-28) POC Venous O2 Saturation (Beatrice) 58 % Bedside FiO2 VTE Prophylaxis Ordered VTE Prophylaxis Devices: No VTE Pharmacological Prophylaxi: Yes Assessment/Plan Assessment/Plan acute toxic encephalopathy multi drug abuse, acute meth and alcohol intox psychotic behavior, homicidal reported in ER, acute delirium concussion, post concussive syndrome acute rhabdomyolysis, CK 3500, needs hydration acute renal failure, cr 1.5, baseline unk, maybe vasomotor nephropathy Justifications for Admission Other Justification FERNANDA SAL MD Nov 30, 2020 10:21
[2020-11-30 10:58] VITALS: BP 130/85
--- NOTE | 2020-11-30 11:28 | NUR ---
Patient arrived to the floor around 0950 in a cot from the ER. He only woke up with a sternal rub but quickly went back to sleep. ER report obtained from Shital around 0923 who stated patient is now ALOx4 for her and hungry. PAT team assessed patient in ER. IV fluids infused from ER. Patient asleep in bed with call light in reach. Will continue to monitor.
[2020-11-30] MEDS: IV NORMAL SALINE 1000ML BAG 1,000 ML IV SCH ×4 (12:48→20:32)
[2020-11-30 15:00] VITALS: BP 122/80
[2020-11-30] MEDS ORDERED: ENOXAPARIN 40 MG/0.4 ML SYRINGE. SQ SCH (16:00)
--- NOTE | 2020-11-30 17:14 | NUR ---
Patients sister, Elza Dodd [phone], took patients debit cards and ID. She stated she did not know where his wallet was or his phone. Patient notified and aware.
[2020-11-30 19:00] VITALS: BP 120/77
[2020-11-30 23:00] VITALS: BP 128/72
[2020-12-01] MEDS: IV NORMAL SALINE 1000ML BAG 1,000 ML IV SCH ×3 (00:15→10:08)
[2020-12-01 03:00] VITALS: BP 137/74
[2020-12-01 04:42] LABS: BASO % 0 % (0-3); EOS # 0.1 x10^3/uL (0.0-0.7); EOS % 2 % (0-3); HEMATOCRIT 37.7 % (39.0-53.0); HEMOGLOBIN 12.8 g/dL (13.0-17.5); LYMPH # 2.3 x10^3/uL (1.0-4.8); LYMPH % 33 % (24-48); MEAN CORPUSCULAR HEMOGLOBIN 27 pg (25-35); MEAN CORPUSCULAR HGB CONC 34 g/dL (31-37); MEAN CORPUSCULAR VOLUME 79 fL (79-100); MONO # 0.7 x10^3/uL (0.0-1.1); MONO % 10 % (0-9); NEUT # 3.7 x10^3/uL (1.8-7.7); NEUT % 54 % (31-73); PLATELET COUNT 216 x10^3/uL (140-400); RED BLOOD COUNT 4.77 x10^6/uL (4.30-5.70); RED CELL DISTRIBUTION WIDTH 14.4 % (11.5-14.5); WHITE BLOOD COUNT 6.8 x10^3/uL (4.0-11.0)
[2020-12-01 05:17] LABS: CALCIUM 8.2 mg/dL (8.5-10.1); CREATININE 1.2 mg/dL (0.7-1.3); GFR 83.4; POTASSIUM 3.8 mmol/L (3.5-5.1)
[2020-12-01 07:29] VITALS: BP 150/87
[2020-12-01] MEDS: MULTIVIT INFUSN,ADULT 4,VIT K 10 ML, THIAMINE INJ 100 MG, FOLIC ACID INJ 1 MG in IV NOR... IV SCH (10:10)
[2020-12-01 12:00] VITALS: BP 142/79
--- NOTE | 2020-12-01 13:48 | PDOC ---
[employer] PROGRESS NOTE Date of Service DOS: DATE: 12/01/20 TIME: 12:48 Chief Complaint Chief Complaint acute toxic encephalopathy multi drug abuse, acute meth and alcohol intox psychotic behavior, homicidal reported in ER, acute delirium concussion, post concussive syndrome acute rhabdomyolysis, CK 3500, needs hydration acute renal failure, cr 1.5, baseline unk, maybe vasomotor nephropathy History of Present Illness History of Present Illness Mr. Mojica is a 35-year-old AA male admit for ER for acute psychosis, was in police custody, confused, minimally responsive to pain on arrival. then awoke and was agitated and combative and required sedation. . Per police at bedside they were called to the scene because patient was making homicidal threats to shoot people with a gun. he was found with alcohol, and reports he doesn't like doctors, pt had a head injury during the arrest and he resisted and hit his head Chest radiograph pelvic x-ray CT head and maxillofacial CT and cervical spine CT negative for any acute fractures EKG sinus 94 bpm no axis deviation QTC 448 no T wave inversions no ST elevations or depressions Labs with creatinine 1.5 and CPK 3526 and ethyl alcohol 168 as well as cocaine and amphetamines on urine drug screen on 11/30/2020 at 0040. Today speaking in full sentences alert and oriented sore shoulder. He does not recall any of the events and denies any homicidal or suicidal ideation. Discussed with psychiatric assessment team nurse liaison that he is not an active threat to himself or others and will be discharged home into the care of his sister as his creatinine improved 1.2 CPK has come down as well and he has no signs of infection or other causes of encephalopathy that were not related to toxins. Vitals/I&O Vitals/I&O: Vital Signs Date Time Temp Pulse Resp B/P (MAP) Pulse Ox O2 Delivery O2 Flow Rate FiO2 12/01/20 07:29 98.3 86 14 150/87 (108) Room Air 98.3 12/01/20 03:00 98 11/30/20 08:28 2.0 I & O 11/30/20 11/30/20 12/01/20 15:00 23:00 07:00 Intake Total 0 ml 1480 ml 1950 ml Balance 0 ml 1480 ml 1950 ml Physical Exam General: Alert, Oriented X3, Cooperative, No acute distress Heart: Regular rate, Normal S1, Normal S2 Lungs: Clear Abdomen: Soft Extremities: No clubbing, No cyanosis Skin: No rashes Labs Labs: Laboratory Tests Test 12/01/20 04:15 White Blood Count 6.8 x10^3/uL (4.0-11.0) Red Blood Count 4.77 x10^6/uL (4.30-5.70) Hemoglobin 12.8 g/dL (13.0-17.5) Hematocrit 37.7 % (39.0-53.0) Mean Corpuscular Volume 79 fL (79-100) Mean Corpuscular Hemoglobin 27 pg (25-35) Mean Corpuscular Hemoglobin Concent 34 g/dL (31-37) Red Cell Distribution Width 14.4 % (11.5-14.5) Platelet Count 216 x10^3/uL (140-400) Neutrophils (%) (Auto) 54 % (31-73) Lymphocytes (%) (Auto) 33 % (24-48) Monocytes (%) (Auto) 10 % (0-9) Eosinophils (%) (Auto) 2 % (0-3) Basophils (%) (Auto) 0 % (0-3) Neutrophils # (Auto) 3.7 x10^3/uL (1.8-7.7) Lymphocytes # (Auto) 2.3 x10^3/uL (1.0-4.8) Monocytes # (Auto) 0.7 x10^3/uL (0.0-1.1) Eosinophils # (Auto) 0.1 x10^3/uL (0.0-0.7) Basophils # (Auto) 0.0 x10^3/uL (0.0-0.2) Sodium Level 145 mmol/L (136-145) Potassium Level 3.8 mmol/L (3.5-5.1) Chloride Level 110 mmol/L (98-107) Carbon Dioxide Level 27 mmol/L (21-32) Anion Gap 8 (6-14) Blood Urea Nitrogen 10 mg/dL (8-26) Creatinine 1.2 mg/dL (0.7-1.3) Estimated GFR (Cockcroft-Gault) 83.4 Glucose Level 85 mg/dL (70-99) Calcium Level 8.2 mg/dL (8.5-10.1) Assessment and Plan Assessmemt and Plan Problems Medical Problems: (1) Agitation requiring sedation protocol Status: Acute (2) ADELINA (acute kidney injury) Status: Acute (3) Blunt head trauma Status: Acute (4) Encephalopathy acute Status: Acute (5) Need for Tdap vaccination Status: Acute (6) Polysubstance abuse Status: Acute (7) Rhabdomyolysis Status: Acute Comment Review of Relevant I have reviewed the following items anthony (where applicable) has been applied. Justifications for Admission Other Justification CHUCKY MINOR MD Dec 01, 2020 13:48
--- NOTE | 2020-12-01 14:56 | PDOC3 ---
Discharge Summary Visit Information Date of Admission: Nov 30, 2020 Date of Discharge: Dec 01, 2020 Admitting Diagnosis: Acute encephalopathy Final Diagnosis Problems Medical Problems: (1) Agitation requiring sedation protocol Status: Acute (2) ADELINA (acute kidney injury) Status: Acute (3) Blunt head trauma Status: Acute (4) Encephalopathy acute Status: Acute (5) Need for Tdap vaccination Status: Acute (6) Polysubstance abuse Status: Acute (7) Rhabdomyolysis Status: Acute Brief Hospital Course Allergies Allergies Coded Allergies Type Severity Reaction Last Updated Verified No Known Drug Allergies 07/31/15 No Vital Signs Vital Signs Date Time Temp Pulse Resp B/P (MAP) Pulse Ox O2 Delivery O2 Flow Rate FiO2 12/01/20 12:00 97.6 69 20 142/79 (100) Room Air 97.6 12/01/20 03:00 98 11/30/20 08:28 2.0 Lab Results Laboratory Tests Test 11/30/20 00:40 11/30/20 01:00 11/30/20 04:25 11/30/20 10:00 Urine Collection Type Unknown Urine Color Yellow Urine Clarity Clear Urine pH 5.5 (<5.0-8.0) Urine Specific [place] >=1.030 (1.000-1.030) Urine Protein Negative mg/dL (NEG-TRACE) Urine Glucose (UA) Negative mg/dL (NEG) Urine Ketones (Stick) Trace mg/dL (NEG) Urine Blood Trace (NEG) Urine Nitrite Negative (NEG) Urine Bilirubin Negative (NEG) Urine Urobilinogen Dipstick 0.2 mg/dL (0.2 mg/dL) Urine Leukocyte Esterase Negative (NEG) Urine RBC Occ /HPF (0-2) Urine WBC 0 /HPF (0-4) Urine Squamous Epithelial Cells Few /LPF Urine Bacteria 0 /HPF (0-FEW) Urine Hyaline Casts Few /HPF Urine Mucus Marked /LPF Urine Opiates Screen Neg (NEG) Urine Methadone Screen Neg (NEG) Urine Barbiturates Neg (NEG) Urine Phencyclidine Screen Neg (NEG) Urine Amphetamine/Methamphetamine Pos (NEG) Urine Benzodiazepines Screen Neg (NEG) Urine Cocaine Screen Pos (NEG) Urine Cannabinoids Screen Neg (NEG) Urine Ethyl Alcohol Pos (NEG) White Blood Count 5.3 x10^3/uL (4.0-11.0) Red Blood Count 5.06 x10^6/uL (4.30-5.70) Hemoglobin 13.7 g/dL (13.0-17.5) Hematocrit 39.3 % (39.0-53.0) Mean Corpuscular Volume 78 fL (79-100) Mean Corpuscular Hemoglobin 27 pg (25-35) Mean Corpuscular Hemoglobin Concent 35 g/dL (31-37) Red Cell Distribution Width 14.2 % (11.5-14.5) Platelet Count 228 x10^3/uL (140-400) Neutrophils (%) (Auto) 47 % (31-73) Lymphocytes (%) (Auto) 43 % (24-48) Monocytes (%) (Auto) 9 % (0-9) Eosinophils (%) (Auto) 1 % (0-3) Basophils (%) (Auto) 1 % (0-3) Neutrophils # (Auto) 2.5 x10^3/uL (1.8-7.7) Lymphocytes # (Auto) 2.3 x10^3/uL (1.0-4.8) Monocytes # (Auto) 0.5 x10^3/uL (0.0-1.1) Eosinophils # (Auto) 0.0 x10^3/uL (0.0-0.7) Basophils # (Auto) 0.0 x10^3/uL (0.0-0.2) Sodium Level 144 mmol/L (136-145) Potassium Level 3.5 mmol/L (3.5-5.1) Chloride Level 107 mmol/L (98-107) Carbon Dioxide Level 24 mmol/L (21-32) Anion Gap 13 (6-14) Blood Urea Nitrogen 13 mg/dL (8-26) Creatinine 1.5 mg/dL (0.7-1.3) Estimated GFR (Cockcroft-Gault) 64.4 Glucose Level 118 mg/dL (70-99) Calcium Level 8.7 mg/dL (8.5-10.1) Magnesium Level 2.4 mg/dL (1.8-2.4) Total Bilirubin 0.5 mg/dL (0.2-1.0) Direct Bilirubin 0.1 mg/dL (0.0-0.2) Aspartate Amino Transf (AST/SGOT) 63 U/L (15-37) Alanine Aminotransferase (ALT/SGPT) 47 U/L (16-63) Alkaline Phosphatase 68 U/L (46-116) Creatine Kinase 3526 U/L (39-308) 2279 U/L (39-308) Troponin I Quantitative < 0.017 ng/mL (0.000-0.055) FJ-Mso-H-Type Natriuretic Peptide 23 pg/mL (0-124) Total Protein 6.9 g/dL (6.4-8.2) Albumin 4.1 g/dL (3.4-5.0) Salicylates Level 4.3 mg/dL (2.8-20.0) Salicylate Last Dose Date Salicylate Last Dose Time Acetaminophen Level < 2 mcg/ml (10-30) Acetaminophen Last Dose Date Acetaminophen Last Dose Time Ethyl Alcohol Level 168 mg/dL (0-10) Bedside Venous pH 7.28 (7.32-7.42) Bedside Venous pCO2 61 mmHg (41-51) Bedside Venous pO2 35 mmHg (20-40) Venous Blood HCO3 29 mmol/L (24-28) POC Venous O2 Saturation (Beatrice) 58 % Bedside FiO2 Test 12/01/20 04:15 White Blood Count 6.8 x10^3/uL (4.0-11.0) Red Blood Count 4.77 x10^6/uL (4.30-5.70) Hemoglobin 12.8 g/dL (13.0-17.5) Hematocrit 37.7 % (39.0-53.0) Mean Corpuscular Volume 79 fL (79-100) Mean Corpuscular Hemoglobin 27 pg (25-35) Mean Corpuscular Hemoglobin Concent 34 g/dL (31-37) Red Cell Distribution Width 14.4 % (11.5-14.5) Platelet Count 216 x10^3/uL (140-400) Neutrophils (%) (Auto) 54 % (31-73) Lymphocytes (%) (Auto) 33 % (24-48) Monocytes (%) (Auto) 10 % (0-9) Eosinophils (%) (Auto) 2 % (0-3) Basophils (%) (Auto) 0 % (0-3) Neutrophils # (Auto) 3.7 x10^3/uL (1.8-7.7) Lymphocytes # (Auto) 2.3 x10^3/uL (1.0-4.8) Monocytes # (Auto) 0.7 x10^3/uL (0.0-1.1) Eosinophils # (Auto) 0.1 x10^3/uL (0.0-0.7) Basophils # (Auto) 0.0 x10^3/uL (0.0-0.2) Sodium Level 145 mmol/L (136-145) Potassium Level 3.8 mmol/L (3.5-5.1) Chloride Level 110 mmol/L (98-107) Carbon Dioxide Level 27 mmol/L (21-32) Anion Gap 8 (6-14) Blood Urea Nitrogen 10 mg/dL (8-26) Creatinine 1.2 mg/dL (0.7-1.3) Estimated GFR (Cockcroft-Gault) 83.4 Glucose Level 85 mg/dL (70-99) Calcium Level 8.2 mg/dL (8.5-10.1) Laboratory Tests Test 12/01/20 04:15 White Blood Count 6.8 x10^3/uL (4.0-11.0) Red Blood Count 4.77 x10^6/uL (4.30-5.70) Hemoglobin 12.8 g/dL (13.0-17.5) Hematocrit 37.7 % (39.0-53.0) Mean Corpuscular Volume 79 fL (79-100) Mean Corpuscular Hemoglobin 27 pg (25-35) Mean Corpuscular Hemoglobin Concent 34 g/dL (31-37) Red Cell Distribution Width 14.4 % (11.5-14.5) Platelet Count 216 x10^3/uL (140-400) Neutrophils (%) (Auto) 54 % (31-73) Lymphocytes (%) (Auto) 33 % (24-48) Monocytes (%) (Auto) 10 % (0-9) Eosinophils (%) (Auto) 2 % (0-3) Basophils (%) (Auto) 0 % (0-3) Neutrophils # (Auto) 3.7 x10^3/uL (1.8-7.7) Lymphocytes # (Auto) 2.3 x10^3/uL (1.0-4.8) Monocytes # (Auto) 0.7 x10^3/uL (0.0-1.1) Eosinophils # (Auto) 0.1 x10^3/uL (0.0-0.7) Basophils # (Auto) 0.0 x10^3/uL (0.0-0.2) Sodium Level 145 mmol/L (136-145) Potassium Level 3.8 mmol/L (3.5-5.1) Chloride Level 110 mmol/L (98-107) Carbon Dioxide Level 27 mmol/L (21-32) Anion Gap 8 (6-14) Blood Urea Nitrogen 10 mg/dL (8-26) Creatinine 1.2 mg/dL (0.7-1.3) Estimated GFR (Cockcroft-Gault) 83.4 Glucose Level 85 mg/dL (70-99) Calcium Level 8.2 mg/dL (8.5-10.1) Brief Hospital Course Mr. Mojica is a 35-year-old AA male admit for ER for acute psychosis, was in police custody, confused, minimally responsive to pain on arrival. then awoke and was agitated and combative and required sedation. . Per police at bedside they were called to the scene because patient was making homicidal threats to shoot people with a gun. he was found with alcohol, and reports he doesn't like doctors, pt had a head injury during the arrest and he resisted and hit his head Chest radiograph pelvic x-ray CT head and maxillofacial CT and cervical spine CT negative for any acute fractures EKG sinus 94 bpm no axis deviation QTC 448 no T wave inversions no ST elevations or depressions Labs with creatinine 1.5 and CPK 3526 and ethyl alcohol 168 as well as cocaine and amphetamines on urine drug screen on 11/30/2020 at 0040. Day of discharge speaking in full sentences alert and oriented sore shoulder. He does not recall any of the events and denies any homicidal or suicidal ideation. Discussed with psychiatric assessment team nurse liaison that he is not an active threat to himself or others and will be discharged home into the care of his sister as his creatinine improved 1.2 CPK has come down as well and he has no signs of infection or other causes of encephalopathy that were not related to toxins. Problem list: acute toxic encephalopathy multi drug abuse, acute meth and alcohol intox psychotic behavior, homicidal reported in ER, acute delirium concussion, post concussive syndrome acute rhabdomyolysis, CK 3500, needs hydration acute renal failure, cr 1.5, baseline unk, maybe vasomotor nephropathy Greater than 30 minutes spent on d/c home, no prescriptions Discharge Information Condition at Discharge: Improved Follow Up: Weeks Disposition/Orders: D/C to Home No Active Prescriptions or Reported Meds Justicifation of Admission Dx: Justifications for Admission: Justification of Admission Dx: Yes CHUCKY MINOR MD Dec 01, 2020 14:56
[2020-12-05] MEDS ORDERED: FOLIC ACID 1 MG TABLET. PO SCH (09:00)
[2020-12-05] MEDS ORDERED: MULTIVITAMIN with MINERAL TABLET. PO SCH (09:00)
[2020-12-05] MEDS ORDERED: THIAMINE 100 MG TABLET. PO SCH (09:00)
== END 2020-12-01 14:38 | disposition home or self-care (01) | DRG 917 ==
LOC: EEVIPCON 00:27 → ER 00:27 → 6 SOUTH 02:16 → 4 NORTH 09:18
PROVIDERS: ADMIT Internal Medicine; ATTEND Internal Medicine
DX: T43.621A Poisoning by amphetamines, accidental (unintentional), initial encounter (principal); G92 Toxic encephalopathy; N17.0 Acute kidney failure with tubular necrosis; M62.82 Rhabdomyolysis; F07.81 Postconcussional syndrome; F10.129 Alcohol abuse with intoxication, unspecified; Z87.891 Personal history of nicotine dependence; F19.10 Other psychoactive substance abuse, uncomplicated; F31.9 Bipolar disorder, unspecified
CPT/HCPCS: 36415; 70450; 70486; 71045; 72125; 72170; 80048; 80076; 80307; 80329; 81001; 82550; 82803; 83735; 83880; 84484; 85025; 90471; 90715; 93005; 96361; 96374; 96375; G0480; J1630; J2060; J3411; J3490; J7030; 99285-25; G0378